=== PATIENT | male | born 1990 | race African-American/Black ===

== ENCOUNTER 2017-08-26 07:59 | Day surgery (SDC) | payer OTHER ==
[2017-08-26 08:32] VITALS: BMI 40.3
[2017-08-26] MEDS ORDERED: PROPOFOL 20 ML ONE ×4 (08:35)
[2017-08-26] MEDS ORDERED: SUCCINYLCHOLINE CHLORIDE 200 MG/10 ML VIAL ONE (08:35)
[2017-08-26] MEDS ORDERED: LIDOCAINE HCL/PF 2% SDV 5ML VIAL ONE (08:35)
[2017-08-26] MEDS ORDERED: ePHEDrine SULFATE 50 MG/1 ML AMPULE ONE (08:36)
--- NOTE | 2017-08-26 09:06 | PROC ---
Endoscopy Procedure Endoscopy procedure completed. Please see scanned procedure report. colonoscopy with random biopsies. Solid stool throughout, mild sigmoid diverticulosis, otherwise normal appearing mucosa
[2017-08-26 09:07] VITALS: TEMP 98.6
[2017-08-26 09:52] VITALS: BP 112/58
[2017-08-26 12:39] VITALS: PULSE 61
--- NOTE | 2017-08-27 17:56 | PATH ---
Surgical Pathology Report Patient Name: FRANKLIN BLISS [facility]. Rec. #: [id number] /Age/Gender: 1990 (Age: 27) / M Account: [id number] Location: [facility]-ENDOSCOPY Taken: 08/26/2017 Received: 08/26/2017 Reported: 08/27/2017 Physicians: Poncho Liriano M.D. Specimen(s) Received A: BX ASCENDING COLON B: BX DESCENDING COLON C: BX SIGMOID D: BX RECTUM Clinical History Preoperative diagnosis: Diverticulitis Postoperative diagnosis: Diverticulosis Final Diagnosis A. ASCENDING COLON, BIOPSY: POLYPOID COLONIC MUCOSA WITH PROMINENT LYMPHOID AGGREGATES. B. DESCENDING COLON, BIOPSY: POLYPOID COLONIC MUCOSA WITH PROMINENT LYMPHOID AGGREGATES. C. SIGMOID COLON, BIOPSY: POLYPOID COLONIC MUCOSA WITH FOCAL SUPERFICIAL HYPERPLASTIC FEATURES. D. RECTUM, BIOPSY: POLYPOID COLONIC MUCOSA WITH FOCAL SUPERFICIAL HYPERPLASTIC FEATURES. Electronically Signed Zeinab Olivia M.D. Gross Description A. Received in formalin, labeled "biopsy ascending colon" are 2 garber, irregular portions of soft tissue measuring 0.2 and 0.4 cm. in greatest dimension. The specimens are submitted in toto in one cassette. B. Received in formalin, labeled "biopsy descending colon" are 2 garber, irregular portions of soft tissue measuring 0.2 and 0.3 cm. in greatest dimension. The specimens are submitted in toto in one cassette. C. Received in formalin, labeled "biopsy sigmoid" are 3 garber, irregular portions of soft tissue ranging from 0.5-0.8 cm. in greatest dimension. The specimens are submitted in toto in one cassette. D. Received in formalin, labeled "biopsy rectum" is a garber, irregular portion of soft tissue measuring 0.6 cm. in greatest dimension. The specimen is submitted in toto in one cassette. 08/26/201708/26/2017
== END 2017-08-26 09:50 | disposition home or self-care (01) ==
LOC: JASU-ENDO 07:59
PROVIDERS: ATTEND Internal Medicine Gastroenterology
PROC: 0DBN8ZX Excision of Sigmoid Colon, Via Natural or Artificial Opening Endoscopic, Diagnostic (ICD-10-PCS; 2017-08-26)
PROC: 0DBP8ZX Excision of Rectum, Via Natural or Artificial Opening Endoscopic, Diagnostic (ICD-10-PCS; 2017-08-26)
PROC: 0DBM8ZX Excision of Descending Colon, Via Natural or Artificial Opening Endoscopic, Diagnostic (ICD-10-PCS; 2017-08-26)
PROC: 0DBK8ZX Excision of Ascending Colon, Via Natural or Artificial Opening Endoscopic, Diagnostic (ICD-10-PCS; principal; 2017-08-26 08:30)
DX: Z09 Encounter for follow-up examination after completed treatment for conditions other than malignant neoplasm (principal); K63.89 Other specified diseases of intestine; K57.30 Diverticulosis of large intestine without perforation or abscess without bleeding; Z87.19 Personal history of other diseases of the digestive system
CPT/HCPCS: 88305-TC

== ENCOUNTER 2018-01-07 17:13 | Emergency (ER) | payer OTHER ==
--- NOTE | 2018-01-07 17:16 | PDOC ---
Rapid Medical Evaluation Time Seen by Provider: 01/07/18 17:14 Medical Evaluation: Allergies Allergy/AdvReac Type Severity Reaction Status Date / Time aspirin Allergy Verified 07/15/17 09:00 01/07/18 17:14 I have performed a brief in-person evaluation of this patient. The patient presents with a chief complaint of: "same pain as " pain s/p cholecystecomy 2 yrs ago", vomiting last two days, last BM 3 days ago, not passing gas Pertinent physical exam findings: uncomfortable appearing, generalized tenderness to abdomen I have ordered the following: labs,x ray The patient will proceed to the ED for further evaluation. Discharge Disposition - Diagnosis Vomiting - Referrals - Patient Instructions - Post Discharge Activity
[2018-01-07 17:19] VITALS: BP 149/82; PULSE 90; TEMP 99.5; BMI 40.3
[2018-01-07 18:18] LABS: BASO % 0.4 % (0-2.0); EOS % 0.1 % (0-4.5); HEMATOCRIT 49.6 % (35.4-49); HEMOGLOBIN 16.8 GM/dL (11.7-16.9); LYMPH % 18.9 % (8-40); MCH 28.9 pg (25.7-33.7); MCHC 33.9 g/dl (32.0-35.9); MEAN CELL VOLUME 85.2 fl (80-96); MEAN PLT VOLUME 8.6 fl (7.5-11.1); MONO % 7.6 % (3.8-10.2); PLATELET COUNT 252 K/MM3 (134-434); RBC 5.82 M/mm3 (4.00-5.60); WHITE BLOOD COUNT 12.6 K/mm3 (4.0-10.0)
[2018-01-07 18:24] LABS: INR 1.16 (0.82-1.09); PROTHROMBIN TIME (PATIENT) 13.1 SEC (9.7-13.0)
[2018-01-07 18:46] LABS: ALBUMIN 4.9 g/dl (3.4-5.0); ANION GAP 8 (8-16); BLOOD UREA NITROGEN 16 mg/dL (7-18); CALCIUM 10.3 mg/dL (8.5-10.1); CHLORIDE 100 mmol/L (98-107); CO2 31 mmol/L (21-32); CREATININE 1.1 mg/dL (0.7-1.3); GLUCOSE,RANDOM 115 mg/dL (74-106); POTASSIUM 3.7 mmol/L (3.5-5.1); SGOT/AST 23 U/L (15-37); SGPT/ALT 41 U/L (12-78); SODIUM 139 mmol/L (136-145); TOT PROT 8.9 g/dl (6.4-8.2)
[2018-01-07 18:47] LABS: ALK PHOS 58 U/L (45-117)
[2018-01-07 19:56] LABS: URINE APPEARANCE SLCLOUDY; URINE BILIRUBIN NEGATIVE (<2.0 mg/dL); URINE BLOOD NEGATIVE (NEGATIVE); URINE COLOR AMBER; URINE GLUCOSE (UA) NEGATIVE (NEGATIVE); URINE KETONE TRACE (NEGATIVE); URINE LEUK ESTERASE TRACE (NEGATIVE); URINE NITRITE NEGATIVE (NEGATIVE); URINE UROBILINOGEN 4.0 E.U/dl mg/dL (0.2-1.0)
[2018-01-07 19:58] LABS: URINE PROTEIN 2+ (NEGATIVE)
[2018-01-07 19:59] LABS: EPI CELLS RARE /HPF (FEW); URINE MUCUS MANY
== END 2018-01-07 20:30 | disposition left against medical advice (07) ==
LOC: JER 17:13
DX: R11.10 Vomiting, unspecified (principal)
CPT/HCPCS: 36415; 74019-TC-FY; 80053; 81003; 81015; 83605; 83690; 85025; 85610; 86850; 86900; 86901; 87086; 99281-25